=== PATIENT | female | born 1985 | race Caucasian/White ===

== ENCOUNTER → 2017-03-30 | Outpatient (CLI) | payer OTHER ==
[~2017-03-30] MED LIST: ANTIVERT25 MG PO; ATOXIMETIN-B1 CAP PO; BACTRIM DS 8001 TA1 PO; CEPHALEXIN500 M1 PO; CIPRO250 MG PO; CLARITIN10 MG PO; CLINDAMYCIN HC300 MG PO; CLOTRIM ANTIFUNGAL1% TP; COMPAZINE10 MG PO; FLONASE 0.05% 121 EA NAS; FOLIC ACID1 MG; LOMOTIL 0.025 M1 TA1 PO; METHOTREXATE2.5 MG; METHOTREXATE2.5 MG PO; MOTRIN600 MG PO; MOTRIN800 MG PO; PLAQUENIL200 MG PO; PREDNISONE10 MG PO; PRENATAL1 TA3 PO; ROBITUSSIN AC 110 ML PO; SPIRIVA18 MCG IH; ZANTAC150 MG PO; ZITHROMAX Z PA250 MG PO; ZOFRAN ODT4 MG SL; ZYRTEC10 MG PO; [UNRECOGNIZED DRUG - OTHER] PO
[2017-03-30 10:52] LABS: BASO % 0.4 % (0.0-1.0); EOS # 0.2 10*3/uL (0.0-0.4); HEMOGLOBIN 13.8 g/dl (12.0-16.0); LYMPH # 1.3 10*3/uL (1.3-4.4); LYMPH % 16.1 % (27.0-41.0); MEAN CELL VOLUME 94.9 fl (81.0-99.0); MEAN CORPUSCULAR HGB 31.9 pg (27.0-31.0); MEAN CORPUSCULAR HGB CONC 33.7 g/dl (33.0-37.0); MEAN PLATELET VOLUME 9.5 fl (9.6-12.3); MONO # 0.4 10*3/uL (0.1-1.0); MONO % 5.5 % (3.0-9.0); NEUT # 5.9 10*3/uL (2.3-7.9); NEUT % 75.7 % (47.0-73.0); PLATELET COUNT AUTOMATED 199 10*3/uL (130-400); RED BLOOD COUNT 4.32 10*6/uL (4.10-5.10); RED CELL DISTRI WIDTH 12.2 % (0-14.5); WHITE BLOOD COUNT 7.8 10*3/uL (4.8-10.8)
[2017-03-30 11:13] LABS: ALBUMIN 4.1 gm/dl (3.1-4.5); ALKALINE PHOSPHATASE 70 U/L (45-117); BILIRUBIN, TOTAL 0.3 mg/dl (0.2-1.0); BUN 8 mg/dl (7-24); C-REACTIVE PROTEIN 2.85 MG/DL (0-0.3); CARBON DIOXIDE 26 mmol/L (21-32); CHLORIDE 108 mmol/L (98-107); EST GLOM FILT AFRICAN AMERICAN > 60 ml/min; GLUCOSE 91 mg/dL (65-99); POTASSIUM 3.5 mmol/L (3.5-5.1); SGOT/AST 16 IU/L (3-35); SGPT/ALT 19 U/L (12-78); SODIUM 142 mmol/L (136-145); TOTAL PROTEIN 7.6 gm/dL (6.4-8.2)
[2017-03-31 08:12] LABS: COMPLEMENT C4 001834 21 mg/dL (14-44)
== END | disposition home or self-care (01) ==
LOC: LAB 10:25
PROVIDERS: Internal Medicine Rheumatology
DX: M32.9 Systemic lupus erythematosus, unspecified (principal)

== ENCOUNTER 2017-08-27 08:32 | Emergency (ER) | payer OTHER ==
[~2017-08-27] VITALS: Ht 167.6 cm; Wt 70.3 kg
[2017-08-27 08:58] LABS: BASO % 0.4 % (0.0-1.0); EOS # 0.1 10*3/uL (0.0-0.4); EOS % 1.6 % (1.0-4.0); HEMATOCRIT 40.5 % (37.0-47.0); LYMPH # 1.1 10*3/uL (1.3-4.4); LYMPH % 15.5 % (27.0-41.0); MEAN CELL VOLUME 92.9 fl (81.0-99.0); MEAN CORPUSCULAR HGB 32.1 pg (27.0-31.0); MEAN CORPUSCULAR HGB CONC 34.6 g/dl (33.0-37.0); MEAN PLATELET VOLUME 8.9 fl (9.6-12.3); MONO # 0.6 10*3/uL (0.1-1.0); MONO % 7.8 % (3.0-9.0); NEUT # 5.3 10*3/uL (2.3-7.9); NEUT % 74.4 % (47.0-73.0); PLATELET COUNT AUTOMATED 177 10*3/uL (130-400); RED BLOOD COUNT 4.36 10*6/uL (4.10-5.10); RED CELL DISTRI WIDTH 13.1 % (0-14.5); WHITE BLOOD COUNT 7.1 10*3/uL (4.8-10.8)
[2017-08-27 09:07] LABS: BILIRUBIN NEGATIVE (NEGATIVE); BLOOD 1+ (NEGATIVE); CLARITY CLOUDY (CLEAR); COLOR YELLOW (YELLOW); GLUCOSE NEGATIVE (NEGATIVE); KETONE NEGATIVE (NEGATIVE); LEUKO ESTERASE 3+ (NEGATIVE); NITRITE NEGATIVE (NEGATIVE); SPECIFIC GRAVITY 1.025 (1.005-1.030)
[2017-08-27 09:08] LABS: ACT PARTIAL THROMBO TIME 25.7 SECONDS (20.8-31.5)
[2017-08-27 09:15] LABS: ALBUMIN 3.7 gm/dl (3.1-4.5); ALKALINE PHOSPHATASE 75 U/L (45-117); BUN 6 mg/dl (7-24); CHLORIDE 105 mmol/L (98-107); CREATININE 0.78 mg/dL (0.55-1.02); LIPASE 93 U/L (73-393); POTASSIUM 3.7 mmol/L (3.5-5.1); SGOT/AST 15 IU/L (3-35); SGPT/ALT 22 U/L (12-78); SODIUM 138 mmol/L (136-145); TOTAL PROTEIN 7.4 gm/dL (6.4-8.2)
[2017-08-27 09:18] LABS: BETA-HCG, QUANT < 1.0 mIU/mL (1-3); TROPONIN I < 0.015 ng/ml (<0.045)
[2017-08-27 09:30] LABS: BACTERIA 3+; WBC TNTC wbc/hpf (0-5)
[2017-08-27] MEDS ORDERED: Motrin,Rufen800 MG PO (10:57)
[2017-08-27] MEDS ORDERED: LEVAQUIN750 M1 PO (10:57)
== END 2017-08-27 11:36 | disposition home or self-care (01) ==
LOC: ED 08:32
PROVIDERS: Emergency Medicine
DX: J18.9 Pneumonia, unspecified organism (principal); N39.0 Urinary tract infection, site not specified; F17.200 Nicotine dependence, unspecified, uncomplicated; F12.10 Cannabis abuse, uncomplicated; Z88.0 Allergy status to penicillin

== ENCOUNTER 2017-09-12 08:34 | Emergency (ER) | payer OTHER ==
[~2017-09-12] VITALS: Ht 167.6 cm; Wt 70.3 kg
[~2017-09-12 08:34] MED LIST changes: +LEVAQUIN750 M1 PO; +Motrin,Rufen800 MG PO
[2017-09-12 09:46] LABS: BASO # 0.1 10*3/uL (0.0-0.1); BASO % 0.5 % (0.0-1.0); EOS # 0.3 10*3/uL (0.0-0.4); EOS % 2.8 % (1.0-4.0); HEMATOCRIT 39.6 % (37.0-47.0); HEMOGLOBIN 13.4 g/dl (12.0-16.0); LYMPH # 1.9 10*3/uL (1.3-4.4); LYMPH % 17.1 % (27.0-41.0); MEAN CELL VOLUME 92.3 fl (81.0-99.0); MEAN CORPUSCULAR HGB 31.2 pg (27.0-31.0); MEAN CORPUSCULAR HGB CONC 33.8 g/dl (33.0-37.0); MEAN PLATELET VOLUME 9.2 fl (9.6-12.3); MONO # 0.6 10*3/uL (0.1-1.0); MONO % 5.6 % (3.0-9.0); NEUT % 73.6 % (47.0-73.0); PLATELET COUNT AUTOMATED 212 10*3/uL (130-400); RED BLOOD COUNT 4.29 10*6/uL (4.10-5.10); RED CELL DISTRI WIDTH 12.9 % (0-14.5); WHITE BLOOD COUNT 10.8 10*3/uL (4.8-10.8)
[2017-09-12 10:02] LABS: ALBUMIN 3.7 gm/dl (3.1-4.5); ALKALINE PHOSPHATASE 82 U/L (45-117); BUN 6 mg/dl (7-24); CHLORIDE 105 mmol/L (98-107); CREATININE 0.71 mg/dL (0.55-1.02); POTASSIUM 3.9 mmol/L (3.5-5.1); SGOT/AST 12 IU/L (3-35); SGPT/ALT 17 U/L (12-78); SODIUM 137 mmol/L (136-145); TOTAL PROTEIN 7.5 gm/dL (6.4-8.2)
[2017-09-12 10:03] LABS: TROPONIN I < 0.015 ng/ml (<0.045)
[2017-09-12] MEDS ORDERED: CHERATUSSIN AC118 M1 PO (12:54)
[2017-09-12] MEDS ORDERED: ALBUTEROL2.5 MG/0.5 INH (12:54)
== END 2017-09-12 14:52 | disposition home or self-care (01) ==
LOC: ED 08:34
PROVIDERS: Nurse Practitioner
DX: J18.9 Pneumonia, unspecified organism (principal); F17.200 Nicotine dependence, unspecified, uncomplicated; Z88.0 Allergy status to penicillin

== ENCOUNTER 2017-11-15 10:41 | Emergency (ER) | payer OTHER ==
[~2017-11-15] VITALS: Ht 167.6 cm; Wt 72.6 kg
[~2017-11-15 10:41] MED LIST changes: +ALBUTEROL2.5 MG/0.5 INH; +CHERATUSSIN AC118 M1 PO
[2017-11-15] MEDS ORDERED: PLAQUENIL200 MG PO (10:51)
[2017-11-15 11:13] LABS: BILIRUBIN NEGATIVE (NEGATIVE); BLOOD NEGATIVE (NEGATIVE); CLARITY SL CLOUDY (CLEAR); COLOR YELLOW (YELLOW); GLUCOSE NEGATIVE (NEGATIVE); KETONE TRACE (NEGATIVE); LEUKO ESTERASE TRACE (NEGATIVE); NITRITE NEGATIVE (NEGATIVE); UROBILINOGEN 0.2 E.U./dl (0.2-1.0)
[2017-11-15 11:22] LABS: BACTERIA 3+; EPITHELIAL CELLS 16-20
[2017-11-15 11:27] LABS: BASO % 0.5 % (0.0-1.0); EOS % 0.5 % (1.0-4.0); HEMATOCRIT 41.3 % (37.0-47.0); HEMOGLOBIN 13.9 g/dl (12.0-16.0); LYMPH # 2.1 10*3/uL (1.3-4.4); LYMPH % 31.8 % (27.0-41.0); MEAN CELL VOLUME 93.7 fl (81.0-99.0); MEAN CORPUSCULAR HGB 31.5 pg (27.0-31.0); MEAN CORPUSCULAR HGB CONC 33.7 g/dl (33.0-37.0); MEAN PLATELET VOLUME 9.2 fl (9.6-12.3); MONO # 0.4 10*3/uL (0.1-1.0); MONO % 6.8 % (3.0-9.0); NEUT # 3.9 10*3/uL (2.3-7.9); NEUT % 60.2 % (47.0-73.0); PLATELET COUNT AUTOMATED 208 10*3/uL (130-400); RED BLOOD COUNT 4.41 10*6/uL (4.10-5.10); WHITE BLOOD COUNT 6.4 10*3/uL (4.8-10.8)
[2017-11-15 11:42] LABS: ALKALINE PHOSPHATASE 62 U/L (45-117); BUN 10 mg/dl (7-24); CHLORIDE 107 mmol/L (98-107); CREATININE 0.71 mg/dL (0.55-1.02); SGOT/AST 15 IU/L (3-35); SGPT/ALT 20 U/L (12-78); SODIUM 140 mmol/L (136-145); TOTAL PROTEIN 7.5 gm/dL (6.4-8.2)
[2017-11-15 12:14] LABS: B-hCG (QUALITATIVE) POSITIVE (NEGATIVE)
== END 2017-11-15 14:56 | disposition home or self-care (01) ==
LOC: ED 10:41
PROVIDERS: Emergency Medicine; Nurse Practitioner
DX: O26.891 Other specified pregnancy related conditions, first trimester (principal); O99.331 Smoking (tobacco) complicating pregnancy, first trimester; F17.200 Nicotine dependence, unspecified, uncomplicated; Z88.0 Allergy status to penicillin; Z90.49 Acquired absence of other specified parts of digestive tract; Z3A.01 Less than 8 weeks gestation of pregnancy

== ENCOUNTER → 2017-12-31 | Outpatient (CLI) | payer OTHER ==
[2017-12-31 11:31] LABS: BILIRUBIN NEGATIVE (NEGATIVE); BLOOD NEGATIVE (NEGATIVE); CLARITY CLOUDY (CLEAR); COLOR YELLOW (YELLOW); GLUCOSE NEGATIVE (NEGATIVE); KETONE NEGATIVE (NEGATIVE); LEUKO ESTERASE TRACE (NEGATIVE); NITRITE NEGATIVE (NEGATIVE); PH 6.5 (5.0-9.0); UROBILINOGEN 0.2 E.U./dl (0.2-1.0)
[2017-12-31 11:47] LABS: BACTERIA TRACE; EPITHELIAL CELLS 16-20
[2017-12-31 12:01] LABS: ALBUMIN 3.5 gm/dl (3.1-4.5); ALKALINE PHOSPHATASE 62 U/L (45-117); BUN 8 mg/dl (7-24); CHLORIDE 108 mmol/L (98-107); CREATININE 0.64 mg/dL (0.55-1.02); FREE T4 0.89 ng/dl (0.76-1.46); POTASSIUM 3.8 mmol/L (3.5-5.1); SGOT/AST 10 IU/L (3-35); SGPT/ALT 16 U/L (12-78); SODIUM 138 mmol/L (136-145)
[2018-01-01 08:10] LABS: COMPLEMENT C4 001834 16 mg/dL (14-44)
[2018-01-01 15:06] LABS: ANTI-DSDNA ANTIBODIES 096339 58 IU/mL (0-9); SJOGREN ANTI-SS-A <0.2 AI (0.0-0.9); SJOREN AB, ANTI-SS-B <0.2 AI (0.0-0.9)
== END | disposition home or self-care (01) ==
LOC: LAB 10:58
PROVIDERS: Obstetrics & Gynecology Maternal & Fetal Medicine
DX: O99.89 Other specified diseases and conditions complicating pregnancy, childbirth and the puerperium (principal); M32.9 Systemic lupus erythematosus, unspecified

== ENCOUNTER 2018-05-11 02:23 | Emergency (ER) | payer OTHER ==
[~2018-05-11] VITALS: Ht 167.6 cm; Wt 72.6 kg
[2018-05-11] MEDS ORDERED: PRENATABS FA T1 EACH PO (02:44)
[2018-05-11 02:47] LABS: BILIRUBIN NEGATIVE (NEGATIVE); BLOOD 1+ (NEGATIVE); CLARITY CLEAR (CLEAR); COLOR YELLOW (YELLOW); GLUCOSE NEGATIVE (NEGATIVE); KETONE NEGATIVE (NEGATIVE); LEUKO ESTERASE 3+ (NEGATIVE); NITRITE NEGATIVE (NEGATIVE); PH 6.5 (5.0-9.0); SPECIFIC GRAVITY <= 1.005 (1.005-1.030); UROBILINOGEN 0.2 E.U./dl (0.2-1.0)
== END 2018-05-11 04:24 | disposition short-term general hospital (02) ==
LOC: ED 02:23
PROVIDERS: Emergency Medicine
DX: O60.03 Preterm labor without delivery, third trimester (principal); O99.323 Drug use complicating pregnancy, third trimester; M32.9 Systemic lupus erythematosus, unspecified; F12.10 Cannabis abuse, uncomplicated; Z79.899 Other long term (current) drug therapy; Z3A.30 30 weeks gestation of pregnancy; Z88.0 Allergy status to penicillin

== ENCOUNTER 2019-07-27 18:41 | Emergency (ER) | payer OTHER ==
[~2019-07-27] VITALS: Ht 167.6 cm; Wt 73.9 kg
[~2019-07-27 18:41] MED LIST changes: +PRENATABS FA T1 EACH PO
[2019-07-27 19:06] LABS: BILIRUBIN NEGATIVE (NEGATIVE); BLOOD 2+ (NEGATIVE); CLARITY SL CLOUDY (CLEAR); COLOR YELLOW (YELLOW); GLUCOSE NEGATIVE (NEGATIVE); KETONE NEGATIVE (NEGATIVE); LEUKO ESTERASE 3+ (NEGATIVE); NITRITE NEGATIVE (NEGATIVE); PH 6.5 (5.0-9.0); UROBILINOGEN 0.2 E.U./dl (0.2-1.0)
[2019-07-27 19:21] LABS: BACTERIA TRACE; WBC TNTC wbc/hpf (0-5)
[2019-07-27] MEDS ORDERED: AMINOPHYLLIN200 MG PO (19:33)
[2019-07-27] MEDS ORDERED: DELTASONE20 M1 PO (19:33)
== END 2019-07-27 19:40 | disposition home or self-care (01) ==
LOC: ED 18:41
PROVIDERS: Physician Assistant
DX: J40 Bronchitis, not specified as acute or chronic (principal); N39.0 Urinary tract infection, site not specified; Z88.0 Allergy status to penicillin; Z90.49 Acquired absence of other specified parts of digestive tract

== ENCOUNTER 2020-09-15 21:06 | Emergency (ER) | payer OTHER ==
[~2020-09-15] VITALS: Ht 167.6 cm; Wt 63.5 kg
[~2020-09-15 21:06] MED LIST changes: +AMINOPHYLLIN200 MG PO; +DELTASONE20 M1 PO
[2020-09-15 22:21] LABS: URINE AMPHETAMINES > 1000 (1000ng/ml); URINE BARBITURATES < 200 (200ng/ml); URINE BENZODIAZEPINES < 200 (200ng/ml); URINE CANNABINOIDS (THC) > 50 (50ng/ml); URINE COCAINE < 300 (300ng/ml); URINE METHADONE < 300 (300ng/ml); URINE OPIATES < 300 (300ng/ml); URINE PHENCYCLIDINE < 25 (25ng/ml)
== END 2020-09-15 22:37 | disposition home or self-care (01) ==
LOC: ED 21:06
PROVIDERS: Internal Medicine
DX: F19.90 Other psychoactive substance use, unspecified, uncomplicated (principal); F32.9 Major depressive disorder, single episode, unspecified; F17.200 Nicotine dependence, unspecified, uncomplicated; Z88.0 Allergy status to penicillin; Z79.2 Long term (current) use of antibiotics; Z79.899 Other long term (current) drug therapy; Z90.49 Acquired absence of other specified parts of digestive tract

== ENCOUNTER 2021-05-12 14:49 | Emergency (ER) | payer OTHER ==
[~2021-05-12] VITALS: Ht 167.6 cm; Wt 74.8 kg
[2021-05-12 15:56] LABS: BASO % 0.5 % (0.0-1.0); EOS % 0.7 % (1.0-4.0); HEMATOCRIT 43.1 % (37.0-47.0); LYMPH # 1.3 10*3/uL (1.3-4.4); MEAN CELL VOLUME 95.8 fl (81.0-99.0); MEAN CORPUSCULAR HGB 30.9 pg (27.0-31.0); MEAN CORPUSCULAR HGB CONC 32.3 g/dl (33.0-37.0); MEAN PLATELET VOLUME 9.3 fl (9.6-12.3); MONO # 0.3 10*3/uL (0.1-1.0); MONO % 5.6 % (3.0-9.0); NEUT # 3.9 10*3/uL (2.3-7.9); PLATELET COUNT AUTOMATED 226 10*3/uL (130-400); RED CELL DISTRI WIDTH 11.9 % (0-14.5); WHITE BLOOD COUNT 5.5 10*3/uL (4.8-10.8)
[2021-05-12 16:12] LABS: ACETAMINOPHEN (TYLENOL) < 5.0 ug/ml (10-30); ALBUMIN 3.6 gm/dl (3.1-4.5); ALKALINE PHOSPHATASE 71 U/L (45-117); BUN 6 mg/dl (7-24); CHLORIDE 109 mmol/L (98-107); CPK 74 U/L (26-192); CREATININE 0.82 mg/dL (0.55-1.02); ETHYL ALCOHOL < 3.0 mg/dl (<3); LIPASE 82 U/L (73-393); POTASSIUM 3.7 mmol/L (3.5-5.1); SGOT/AST 15 IU/L (3-35); SGPT/ALT 16 U/L (12-78); SODIUM 138 mmol/L (136-145); TOTAL PROTEIN 7.3 gm/dL (6.4-8.2)
[2021-05-12 16:13] LABS: BETA-HCG, QUANT < 1.0 mIU/mL (1-3)
[2021-05-12 18:29] LABS: BILIRUBIN Negative (Negative); BLOOD Negative (Negative); CLARITY Clear (Clear); COLOR Yellow (Yellow); GLUCOSE Negative (Negative); KETONE Negative (Negative); LEUKO ESTERASE Negative (Negative); NITRITE Negative (Negative); SPECIFIC GRAVITY <= 1.005 (1.001-1.030); UROBILINOGEN 0.2 E.U./dl (0.0-1.0)
[2021-05-12 18:36] LABS: URINE AMPHETAMINES < 1000 (1000ng/ml); URINE BARBITURATES < 200 (200ng/ml); URINE BENZODIAZEPINES < 200 (200ng/ml); URINE CANNABINOIDS (THC) > 50 (50ng/ml); URINE COCAINE < 300 (300ng/ml); URINE METHADONE < 300 (300ng/ml); URINE OPIATES < 300 (300ng/ml)
[2021-05-12 18:38] LABS: URINE PHENCYCLIDINE < 25 (25ng/ml)
[2021-05-12 18:42] LABS: BACTERIA TRACE; EPITHELIAL CELLS 0-2; RBC 0-2 rbc/hpf (0-2); WBC 0-2 wbc/hpf (0-5)
== END 2021-05-12 18:14 | disposition home or self-care (01) ==
LOC: ED 14:49
PROVIDERS: Emergency Medicine
DX: F43.20 Adjustment disorder, unspecified (principal); F17.200 Nicotine dependence, unspecified, uncomplicated; Z79.899 Other long term (current) drug therapy; Z88.0 Allergy status to penicillin

== ENCOUNTER 2021-07-28 15:44 | Emergency (ER) | payer OTHER ==
[~2021-07-28] VITALS: Ht 167.6 cm; Wt 74.8 kg
[2021-07-28 18:05] LABS: BILIRUBIN Negative (Negative); BLOOD 1+ (Negative); CLARITY Clear (Clear); COLOR Yellow (Yellow); GLUCOSE Negative (Negative); KETONE Negative (Negative); LEUKO ESTERASE 1+ (Negative); NITRITE Negative (Negative); SPECIFIC GRAVITY <= 1.005 (1.001-1.030); UROBILINOGEN 0.2 E.U./dl (0.0-1.0)
[2021-07-28 18:17] LABS: EPITHELIAL CELLS 21-30
[2021-07-28 18:18] LABS: BACTERIA TRACE
== END 2021-07-28 18:41 | disposition home or self-care (01) ==
LOC: ED 15:44
PROVIDERS: Emergency Medicine
DX: J02.9 Acute pharyngitis, unspecified (principal); Z20.822 Contact with and (suspected) exposure to COVID-19; Z34.90 Encounter for supervision of normal pregnancy, unspecified, unspecified trimester; R05 Cough; R09.81 Nasal congestion; Z88.0 Allergy status to penicillin

== ENCOUNTER → 2021-09-08 | Outpatient (CLI) | payer OTHER | END | disposition home or self-care (01) | LOC: US 13:30 | PROVIDERS: ATTEND Obstetrics & Gynecology | DX: Z34.82 Encounter for supervision of other normal pregnancy, second trimester (principal); Z3A.17 17 weeks gestation of pregnancy ==

== ENCOUNTER → 2021-11-21 | Outpatient (CLI) | payer OTHER | END | disposition home or self-care (01) | LOC: COVID19 15:05 | PROVIDERS: ATTEND Student in an Organized Health Care Education/Training Program | DX: U07.1 COVID-19 (principal) ==

== ENCOUNTER 2022-03-01 15:21 | Emergency (ER) | payer OTHER ==
[~2022-03-01] VITALS: Ht 167.6 cm; Wt 75.3 kg
[2022-03-01] MEDS ORDERED: HYDROCODONE-AC1 EAC1 PO (16:02)
[2022-03-01] MEDS ORDERED: CLEOCIN HCL150 MG PO (16:02)
[2022-03-01] MEDS ORDERED: Motrin,Rufen800 MG PO (16:02)
== END 2022-03-01 16:06 | disposition home or self-care (01) ==
LOC: ED 15:21
DX: K08.89 Other specified disorders of teeth and supporting structures (principal); Z88.0 Allergy status to penicillin; Z90.49 Acquired absence of other specified parts of digestive tract

== ENCOUNTER 2022-05-14 14:40 | Emergency (ER) | payer OTHER ==
[~2022-05-14 14:40] MED LIST changes: +CLEOCIN HCL150 MG PO; +HYDROCODONE-AC1 EAC1 PO
[2022-05-14 15:11] LABS: BILIRUBIN Negative (Negative); BLOOD 2+ (Negative); CLARITY Turbid (Clear); COLOR Yellow (Yellow); GLUCOSE Negative (Negative); KETONE Trace (Negative); LEUKO ESTERASE 2+ (Negative); NITRITE Positive (Negative)
[2022-05-14 15:27] LABS: BACTERIA 2+; EPITHELIAL CELLS 16-20; WBC 41-50 wbc/hpf (0-5)
[2022-05-14] MEDS ORDERED: MACRODANTIN100 M1 PO (15:40)
== END 2022-05-14 15:57 | disposition home or self-care (01) ==
LOC: ED 14:40
PROVIDERS: Internal Medicine
DX: O23.91 Unspecified genitourinary tract infection in pregnancy, first trimester (principal); Z3A.01 Less than 8 weeks gestation of pregnancy; Z88.0 Allergy status to penicillin; Z90.49 Acquired absence of other specified parts of digestive tract; F17.200 Nicotine dependence, unspecified, uncomplicated

== ENCOUNTER → 2022-07-24 | Outpatient (CLI) | payer OTHER ==
[~2022-07-24] MED LIST changes: +MACRODANTIN100 M1 PO
== END | disposition home or self-care (01) ==
LOC: LAB 07-21 09:39
PROVIDERS: ATTEND Nurse Practitioner Family
DX: Z36.0 Encounter for antenatal screening for chromosomal anomalies (principal); Z34.92 Encounter for supervision of normal pregnancy, unspecified, second trimester; Z3A.00 Weeks of gestation of pregnancy not specified

== ENCOUNTER 2022-09-27 02:46 | Emergency (ER) | payer OTHER ==
[~2022-09-27] VITALS: Ht 167.6 cm; Wt 87.1 kg
[2022-09-27 04:42] LABS: BASO % 0.3 % (0.0-1.0); EOS # 0.1 10*3/uL (0.0-0.4); HEMATOCRIT 32.7 % (37.0-47.0); LYMPH # 0.9 10*3/uL (1.3-4.4); LYMPH % 8.7 % (27.0-41.0); MEAN CELL VOLUME 95.3 fl (81.0-99.0); MEAN CORPUSCULAR HGB 33.2 pg (27.0-31.0); MEAN CORPUSCULAR HGB CONC 34.9 g/dl (33.0-37.0); MONO # 0.5 10*3/uL (0.1-1.0); MONO % 4.7 % (3.0-9.0); NEUT # 8.4 10*3/uL (2.3-7.9); NEUT % 84.9 % (47.0-73.0); PLATELET COUNT AUTOMATED 181 10*3/uL (130-400); RED BLOOD COUNT 3.43 10*6/uL (4.10-5.10); RED CELL DISTRI WIDTH 12.9 % (0-14.5)
[2022-09-27 04:58] LABS: ALKALINE PHOSPHATASE 106 U/L (45-117); BUN 5 mg/dl (7-24); CHLORIDE 108 mmol/L (98-107); CREATININE 0.54 mg/dL (0.55-1.02); POTASSIUM 3.7 mmol/L (3.5-5.1); SGPT/ALT 23 U/L (12-78); SODIUM 137 mmol/L (136-145); TOTAL PROTEIN 6.2 gm/dL (6.4-8.2)
[2022-09-27 05:32] LABS: BILIRUBIN Negative (Negative); BLOOD Negative (Negative); CLARITY Clear (Clear); COLOR Yellow (Yellow); GLUCOSE Negative (Negative); KETONE Negative (Negative); LEUKO ESTERASE Negative (Negative); NITRITE Negative (Negative); UROBILINOGEN 0.2 E.U./dl (0.0-1.0)
[2022-09-27 06:10] LABS: WBC 0-2 wbc/hpf (0-5)
== END 2022-09-27 11:43 | disposition left against medical advice (07) ==
LOC: ED 02:46
PROVIDERS: Emergency Medicine
DX: O99.512 Diseases of the respiratory system complicating pregnancy, second trimester (principal); Z20.822 Contact with and (suspected) exposure to COVID-19; J10.1 Influenza due to other identified influenza virus with other respiratory manifestations; Z3A.26 26 weeks gestation of pregnancy

== ENCOUNTER 2022-11-17 10:32 | Emergency (ER) | payer OTHER ==
[~2022-11-17] VITALS: Ht 167.6 cm; Wt 87.5 kg
[2022-11-17] MEDS ORDERED: CEPHALEXIN500 M1 PO (12:15)
== END 2022-11-17 12:28 | disposition home or self-care (01) ==
LOC: ED 10:32
DX: K08.89 Other specified disorders of teeth and supporting structures (principal); Z88.0 Allergy status to penicillin; Z90.49 Acquired absence of other specified parts of digestive tract

== ENCOUNTER 2022-11-26 13:37 | Emergency (ER) | payer OTHER ==
[~2022-11-26] VITALS: Ht 167.6 cm; Wt 85.7 kg
== END 2022-11-26 16:25 | disposition home or self-care (01) ==
LOC: ED 13:37
DX: O99.513 Diseases of the respiratory system complicating pregnancy, third trimester (principal); J06.9 Acute upper respiratory infection, unspecified; Z3A.35 35 weeks gestation of pregnancy; Z88.0 Allergy status to penicillin; Z98.890 Other specified postprocedural states; F10.90 Alcohol use, unspecified, uncomplicated; Z20.822 Contact with and (suspected) exposure to COVID-19

== ENCOUNTER 2023-03-08 21:42 | Emergency (ER) | payer OTHER ==
[~2023-03-08] VITALS: Ht 167.6 cm; Wt 81.6 kg
[2023-03-08 22:01] LABS: BASO % 0.4 % (0.0-1.0); EOS # 0.3 10*3/uL (0.0-0.4); EOS % 3.4 % (1.0-4.0); HEMATOCRIT 41.9 % (37.0-47.0); LYMPH # 2.9 10*3/uL (1.3-4.4); LYMPH % 35.1 % (27.0-41.0); MEAN CELL VOLUME 93.9 fl (81.0-99.0); MEAN CORPUSCULAR HGB 31.2 pg (27.0-31.0); MEAN CORPUSCULAR HGB CONC 33.2 g/dl (33.0-37.0); MEAN PLATELET VOLUME 8.8 fl (9.6-12.3); NEUT % 48.9 % (47.0-73.0); PLATELET COUNT AUTOMATED 270 10*3/uL (130-400); RED BLOOD COUNT 4.46 10*6/uL (4.10-5.10); WHITE BLOOD COUNT 8.3 10*3/uL (4.8-10.8)
[2023-03-08 22:22] LABS: ALKALINE PHOSPHATASE 83 U/L (46-116); BUN 10 mg/dl (9-23); CHLORIDE 107 mmol/L (98-107); SGPT/ALT 44 U/L (10-49); TOTAL PROTEIN 6.9 gm/dL (6.0-8.0)
[2023-03-09] MEDS ORDERED: PREDNISONE20 M1 PO (00:16)
== END 2023-03-09 00:23 | disposition home or self-care (01) ==
LOC: ED 21:42
PROVIDERS: Internal Medicine
DX: R07.89 Other chest pain (principal); Z88.0 Allergy status to penicillin; Z90.49 Acquired absence of other specified parts of digestive tract

== ENCOUNTER → 2023-05-28 | Day surgery (SDC) | payer OTHER ==
[2023-05-24 12:45] VITALS: BP 107/69
[2023-05-28] VITALS (7 sets, daily range): BP systolic 102–130; BP diastolic 46–75
[~2023-05-28] VITALS: Ht 167.6 cm; Wt 79.4 kg
[~2023-05-28] MED LIST changes: +CETIRIZINE10 MG PO; +PREDNISONE20 M1 PO; +PRENATAL MULTI1 EAC3 PO
== END ==
LOC: SDC 05-24 12:30
PROVIDERS: ATTEND Obstetrics & Gynecology
DX: Z30.2 Encounter for sterilization (principal); M32.9 Systemic lupus erythematosus, unspecified; F17.210 Nicotine dependence, cigarettes, uncomplicated; Z79.899 Other long term (current) drug therapy; Z90.49 Acquired absence of other specified parts of digestive tract

== ENCOUNTER 2023-06-15 00:57 | Emergency (ER) | payer OTHER ==
[2023-06-15] MEDS ORDERED: CLINDAMYCIN HC300 MG PO (01:59)
== END 2023-06-15 02:01 | disposition home or self-care (01) ==
LOC: ED 00:57
DX: T81.41XA Infection following a procedure, superficial incisional surgical site, initial encounter (principal); P38.9 Omphalitis without hemorrhage; F32.A Depression, unspecified; Z88.0 Allergy status to penicillin; Z98.890 Other specified postprocedural states; Z98.51 Tubal ligation status; Y83.8 Other surgical procedures as the cause of abnormal reaction of the patient, or of later complication, without mention of misadventure at the time of the procedure; Y92.89 Other specified places as the place of occurrence of the external cause

== ENCOUNTER 2023-06-30 06:09 | Emergency (ER) | payer OTHER ==
[~2023-06-30] VITALS: Ht 165.1 cm; Wt 81.6 kg
[2023-06-30] MEDS ORDERED: PREDNISONE20 M1 PO (06:26)
[2023-06-30] MEDS ORDERED: OMNICEF300 MG PO (06:26)
== END 2023-06-30 06:38 | disposition home or self-care (01) ==
LOC: ED 06:09
DX: K08.89 Other specified disorders of teeth and supporting structures (principal); R11.0 Nausea; R51.9 Headache, unspecified; Z88.0 Allergy status to penicillin; Z79.2 Long term (current) use of antibiotics; Z79.899 Other long term (current) drug therapy

== ENCOUNTER 2023-07-02 00:03 | Emergency (ER) | payer OTHER ==
[~2023-07-02] VITALS: Ht 167.6 cm; Wt 83.9 kg
[~2023-07-02 00:03] MED LIST changes: +OMNICEF300 MG PO
[2023-07-02 00:43] LABS: BASO # 0.1 10*3/uL (0.0-0.1); BASO % 0.7 % (0.0-1.0); EOS # 0.3 10*3/uL (0.0-0.4); LYMPH # 2.6 10*3/uL (1.3-4.4); LYMPH % 36.9 % (27.0-41.0); MEAN CELL VOLUME 93.2 fl (81.0-99.0); MEAN CORPUSCULAR HGB 30.5 pg (27.0-31.0); MEAN CORPUSCULAR HGB CONC 32.7 g/dl (33.0-37.0); MONO # 0.5 10*3/uL (0.1-1.0); MONO % 6.8 % (3.0-9.0); NEUT # 3.6 10*3/uL (2.3-7.9); NEUT % 51.2 % (47.0-73.0); PLATELET COUNT AUTOMATED 267 10*3/uL (130-400); RED CELL DISTRI WIDTH 12.1 % (0-14.5); WHITE BLOOD COUNT 7.1 10*3/uL (4.8-10.8)
[2023-07-02 00:55] LABS: ACT PARTIAL THROMBO TIME 28.5 SECONDS (20.0-32.1)
[2023-07-02 01:06] LABS: ALKALINE PHOSPHATASE 85 U/L (46-116); BUN 8 mg/dl (9-23); CHLORIDE 109 mmol/L (98-107); LIPASE 33 U/L (12-53); POTASSIUM 3.6 mmol/L (3.4-5.1); SGPT/ALT 19 U/L (10-49); TOTAL PROTEIN 6.7 gm/dL (6.0-8.0)
== END 2023-07-02 03:16 | disposition home or self-care (01) ==
LOC: ED 00:03
PROVIDERS: Internal Medicine
DX: K08.89 Other specified disorders of teeth and supporting structures (principal); R07.89 Other chest pain; F32.A Depression, unspecified; Z88.0 Allergy status to penicillin; Z98.890 Other specified postprocedural states; Z98.51 Tubal ligation status

== ENCOUNTER 2023-11-01 20:33 | Emergency (ER) | payer OTHER ==
[~2023-11-01] VITALS: Ht 167.6 cm; Wt 86.2 kg
[~2023-11-01 20:33] MED LIST changes: +DAILY VITE1 EACH PO; +MELOXICAM15 MG PO
[2023-11-01] MEDS ORDERED: ZYRTEC10 M2 PO (20:50)
[2023-11-01 21:32] LABS: BASO # 0.1 10*3/uL (0.0-0.1); BASO % 0.9 % (0.0-1.0); EOS # 0.4 10*3/uL (0.0-0.4); EOS % 5.4 % (1.0-4.0); HEMATOCRIT 43.2 % (37.0-47.0); LYMPH # 1.9 10*3/uL (1.3-4.4); LYMPH % 27.6 % (27.0-41.0); MEAN CELL VOLUME 93.3 fl (81.0-99.0); MEAN CORPUSCULAR HGB 30.2 pg (27.0-31.0); MEAN CORPUSCULAR HGB CONC 32.4 g/dl (33.0-37.0); MEAN PLATELET VOLUME 8.9 fl (9.6-12.3); MONO # 0.5 10*3/uL (0.1-1.0); MONO % 6.5 % (3.0-9.0); NEUT # 4.2 10*3/uL (2.3-7.9); NEUT % 59.5 % (47.0-73.0); PLATELET COUNT AUTOMATED 297 10*3/uL (130-400); RED BLOOD COUNT 4.63 10*6/uL (4.10-5.10); RED CELL DISTRI WIDTH 12.3 % (0-14.5)
[2023-11-01 21:51] LABS: BILIRUBIN Negative (Negative); BLOOD 3+ (Negative); CLARITY Clear (Clear); COLOR Yellow (Yellow); GLUCOSE Negative (Negative); KETONE Negative (Negative); LEUKO ESTERASE Trace (Negative); NITRITE Negative (Negative); PH 6.5 (4.5-8.0); UROBILINOGEN 0.2 E.U./dl (0.0-1.0)
[2023-11-01 21:54] LABS: ALKALINE PHOSPHATASE 82 U/L (46-116); BUN 9 mg/dl (9-23); CHLORIDE 107 mmol/L (98-107); LIPASE 36 U/L (12-53); POTASSIUM 4.2 mmol/L (3.4-5.1); SGPT/ALT 25 U/L (5-49)
[2023-11-01 22:01] LABS: BACTERIA 1+; RBC 41-50 rbc/hpf (0-2)
[2023-11-01] MEDS ORDERED: ZITHROMAX250 MG PO (22:31)
[2023-11-01] MEDS ORDERED: PREDNISONE20 M1 PO (22:31)
== END 2023-11-01 22:37 | disposition home or self-care (01) ==
LOC: ED 20:33
PROVIDERS: Internal Medicine
DX: J40 Bronchitis, not specified as acute or chronic (principal); F32.A Depression, unspecified; Z88.0 Allergy status to penicillin; Z98.890 Other specified postprocedural states; Z98.51 Tubal ligation status; Z79.899 Other long term (current) drug therapy; Z20.822 Contact with and (suspected) exposure to COVID-19

== ENCOUNTER 2024-03-09 02:33 | Emergency (ER) | payer OTHER ==
[~2024-03-09] VITALS: Ht 167.6 cm; Wt 86.2 kg
[~2024-03-09 02:33] MED LIST changes: +ZITHROMAX250 MG PO; +ZYRTEC10 M2 PO
[2024-03-09 03:10] LABS: BASO % 0.4 % (0.0-1.0); EOS # 0.3 10*3/uL (0.0-0.4); EOS % 2.8 % (1.0-4.0); HEMATOCRIT 39.8 % (37.0-47.0); LYMPH # 2.7 10*3/uL (1.3-4.4); LYMPH % 30.2 % (27.0-41.0); MEAN CELL VOLUME 93.2 fl (81.0-99.0); MEAN CORPUSCULAR HGB CONC 32.2 g/dl (33.0-37.0); MONO # 0.6 10*3/uL (0.1-1.0); MONO % 6.2 % (3.0-9.0); NEUT # 5.4 10*3/uL (2.3-7.9); NEUT % 60.3 % (47.0-73.0); PLATELET COUNT AUTOMATED 252 10*3/uL (130-400); RED BLOOD COUNT 4.27 10*6/uL (4.10-5.10); RED CELL DISTRI WIDTH 12.2 % (0-14.5); WHITE BLOOD COUNT 8.9 10*3/uL (4.8-10.8)
[2024-03-09 03:32] LABS: ALKALINE PHOSPHATASE 72 U/L (46-116); BUN 12 mg/dl (9-23); CHLORIDE 103 mmol/L (98-107); POTASSIUM 3.6 mmol/L (3.4-5.1); SGPT/ALT 16 U/L (5-49); TOTAL PROTEIN 6.1 gm/dL (6.0-8.0)
== END 2024-03-09 06:33 | disposition home or self-care (01) ==
LOC: ED 02:33
PROVIDERS: Emergency Medicine
DX: R07.89 Other chest pain (principal); F41.9 Anxiety disorder, unspecified; Z88.0 Allergy status to penicillin; F32.A Depression, unspecified; F12.90 Cannabis use, unspecified, uncomplicated; Z90.49 Acquired absence of other specified parts of digestive tract; Z98.51 Tubal ligation status

== ENCOUNTER 2024-06-15 23:23 | Emergency (ER) | payer OTHER ==
[~2024-06-15] VITALS: Ht 167.6 cm; Wt 98.0 kg
[2024-06-15] MEDS ORDERED: Ondansetron Hydrochloride 4 MG TAB SL ONE (23:50)
[2024-06-15] MEDS ORDERED: Acetaminophen/Hydrocodone ES 7.5/325 tablet PO ONE (23:50)
[2024-06-15] MEDS ORDERED: Sulfamethoxazole/Trimethopri 1 TAB TAB PO ONE (23:50)
[2024-06-15] MEDS ORDERED: SEPTDS PO (23:51)
== END 2024-06-16 00:06 | disposition home or self-care (01) ==
LOC: ED 23:23
DX: L60.0 Ingrowing nail (principal); F32.A Depression, unspecified; Z88.0 Allergy status to penicillin; Z90.49 Acquired absence of other specified parts of digestive tract; Z98.51 Tubal ligation status

== ENCOUNTER 2024-06-17 22:31 | Emergency (ER) | payer OTHER ==
[~2024-06-17] VITALS: Ht 167.6 cm; Wt 98.0 kg
[~2024-06-17 22:31] MED LIST changes: +SEPTDS PO
[2024-06-17 23:12] LABS: BASO # 0.1 10*3/uL (0.0-0.1); BASO % 0.6 % (0.0-1.0); EOS # 0.4 10*3/uL (0.0-0.4); EOS % 4.2 % (1.0-4.0); LYMPH # 2.5 10*3/uL (1.3-4.4); LYMPH % 28.2 % (27.0-41.0); MEAN CELL VOLUME 91.8 fl (81.0-99.0); MEAN CORPUSCULAR HGB 30.4 pg (27.0-31.0); MEAN CORPUSCULAR HGB CONC 33.2 g/dl (33.0-37.0); MEAN PLATELET VOLUME 8.9 fl (9.6-12.3); MONO # 0.6 10*3/uL (0.1-1.0); MONO % 7.2 % (3.0-9.0); NEUT # 5.2 10*3/uL (2.3-7.9); NEUT % 59.6 % (47.0-73.0); PLATELET COUNT AUTOMATED 229 10*3/uL (130-400); RED BLOOD COUNT 4.14 10*6/uL (4.10-5.10); RED CELL DISTRI WIDTH 12.4 % (0-14.5); WHITE BLOOD COUNT 8.8 10*3/uL (4.8-10.8)
[2024-06-17 23:35] LABS: ALKALINE PHOSPHATASE 86 U/L (46-116); BUN 10 mg/dl (9-23); CHLORIDE 107 mmol/L (98-107); POTASSIUM 3.8 mmol/L (3.4-5.1); SGPT/ALT 19 U/L (5-49); TOTAL PROTEIN 6.5 gm/dL (6.0-8.0)
== END 2024-06-18 02:45 | disposition home or self-care (01) ==
LOC: ED 22:31
PROVIDERS: Emergency Medicine
DX: R07.89 Other chest pain (principal); R05.9 Cough, unspecified; Z88.0 Allergy status to penicillin; Z79.899 Other long term (current) drug therapy

== ENCOUNTER 2024-06-28 08:00 | Emergency (ER) | payer OTHER ==
[~2024-06-28] VITALS: Ht 167.6 cm; Wt 98.0 kg
[2024-06-28] MEDS ORDERED: diphenhydrAMINE hydrochloride 50 MG/ML VIAL IV ONE (08:30)
[2024-06-28] MEDS ORDERED: methylPREDNISolone sod succ 125 MG VIAL IV ONE (08:30)
[2024-06-28] MEDS ORDERED: FAMOTIDINE 50 ML IV ONE (08:30)
[2024-06-28 08:52] LABS: BASO % 0.1 % (0.0-1.0); EOS # 0.1 10*3/uL (0.0-0.4); EOS % 1.9 % (1.0-4.0); LYMPH # 1.6 10*3/uL (1.3-4.4); LYMPH % 23.9 % (27.0-41.0); MEAN CELL VOLUME 91.7 fl (81.0-99.0); MEAN CORPUSCULAR HGB 30.3 pg (27.0-31.0); MEAN CORPUSCULAR HGB CONC 33.1 g/dl (33.0-37.0); MONO # 0.3 10*3/uL (0.1-1.0); MONO % 4.7 % (3.0-9.0); NEUT # 4.7 10*3/uL (2.3-7.9); NEUT % 69.1 % (47.0-73.0); PLATELET COUNT AUTOMATED 249 10*3/uL (130-400); RED BLOOD COUNT 4.58 10*6/uL (4.10-5.10); RED CELL DISTRI WIDTH 12.3 % (0-14.5); WHITE BLOOD COUNT 6.8 10*3/uL (4.8-10.8)
[2024-06-28 09:13] LABS: ALKALINE PHOSPHATASE 84 U/L (46-116); BUN 7 mg/dl (9-23); CHLORIDE 108 mmol/L (98-107); POTASSIUM 3.6 mmol/L (3.4-5.1); SGPT/ALT 17 U/L (5-49); TOTAL PROTEIN 6.8 gm/dL (6.0-8.0)
[2024-06-28] MEDS ORDERED: PREDNISONE50 MG PO (10:20)
[2024-06-28] MEDS ORDERED: BENADRYL ALLERG25 M5 PO (10:20)
== END 2024-06-28 10:23 | disposition home or self-care (01) ==
LOC: ED 08:00
PROVIDERS: Internal Medicine
DX: L25.9 Unspecified contact dermatitis, unspecified cause (principal); F32.A Depression, unspecified; Z88.0 Allergy status to penicillin; Z90.49 Acquired absence of other specified parts of digestive tract; Z98.51 Tubal ligation status

== ENCOUNTER 2024-10-09 20:51 | Emergency (ER) | payer OTHER ==
[~2024-10-09] VITALS: Ht 167.6 cm; Wt 92.5 kg
[~2024-10-09 20:51] MED LIST changes: +BENADRYL ALLERG25 M5 PO; +PREDNISONE50 MG PO
[2024-10-09] MEDS ORDERED: hydrOXYzine pamoate 25 MG CAP PO ONE (21:20)
[2024-10-09 22:33] LABS: BASO % 0.4 % (0.0-1.0); EOS # 0.2 10*3/uL (0.0-0.4); EOS % 1.9 % (1.0-4.0); HEMATOCRIT 39.5 % (37.0-47.0); MEAN CELL VOLUME 93.4 fl (81.0-99.0); MEAN CORPUSCULAR HGB CONC 32.2 g/dl (33.0-37.0); MEAN PLATELET VOLUME 8.9 fl (9.6-12.3); MONO # 0.6 10*3/uL (0.1-1.0); MONO % 6.1 % (3.0-9.0); NEUT # 6.6 10*3/uL (2.3-7.9); NEUT % 67.3 % (47.0-73.0); PLATELET COUNT AUTOMATED 278 10*3/uL (130-400); RED BLOOD COUNT 4.23 10*6/uL (4.10-5.10); RED CELL DISTRI WIDTH 12.3 % (0-14.5); WHITE BLOOD COUNT 9.8 10*3/uL (4.8-10.8)
[2024-10-09 22:53] LABS: BUN 11 mg/dl (9-23); CHLORIDE 107 mmol/L (98-107); POTASSIUM 4.1 mmol/L (3.4-5.1)
== END 2024-10-09 23:07 | disposition home or self-care (01) ==
LOC: ED 20:51
PROVIDERS: Physician Assistant Medical
DX: M54.6 Pain in thoracic spine (principal); F41.9 Anxiety disorder, unspecified; M79.7 Fibromyalgia; F32.A Depression, unspecified; Z88.0 Allergy status to penicillin; Z90.49 Acquired absence of other specified parts of digestive tract; Z98.51 Tubal ligation status

== ENCOUNTER → 2024-12-16 | Outpatient (CLI) | payer OTHER ==
[2024-12-16 15:12] LABS: BASO % 0.4 % (0.0-1.0); EOS # 0.2 10*3/uL (0.0-0.4); MEAN CELL VOLUME 90.7 fl (81.0-99.0); MEAN CORPUSCULAR HGB 29.8 pg (27.0-31.0); MEAN CORPUSCULAR HGB CONC 32.9 g/dl (33.0-37.0); MEAN PLATELET VOLUME 8.5 fl (9.6-12.3); MONO # 0.5 10*3/uL (0.1-1.0); MONO % 5.3 % (3.0-9.0); NEUT # 6.5 10*3/uL (2.3-7.9); NEUT % 66.4 % (47.0-73.0); PLATELET COUNT AUTOMATED 262 10*3/uL (130-400); RED BLOOD COUNT 4.63 10*6/uL (4.10-5.10); RED CELL DISTRI WIDTH 12.7 % (0-14.5); WHITE BLOOD COUNT 9.7 10*3/uL (4.8-10.8)
[2024-12-16 15:38] LABS: ALKALINE PHOSPHATASE 71 U/L (46-116); BUN 11 mg/dl (9-23); CHLORIDE 103 mmol/L (98-107); POTASSIUM 3.6 mmol/L (3.4-5.1); SGPT/ALT 17 U/L (5-49); TOTAL PROTEIN 7.3 gm/dL (6.0-8.0)
== END | disposition home or self-care (01) ==
LOC: MAMMO 13:30 → LAB 13:40
PROVIDERS: ATTEND Nurse Practitioner Family
DX: N63.24 Unspecified lump in the left breast, lower inner quadrant (principal); M32.9 Systemic lupus erythematosus, unspecified

== ENCOUNTER 2025-04-27 14:42 | Emergency (ER) | payer OTHER ==
[~2025-04-27] VITALS: Ht 167.6 cm; Wt 96.6 kg
[2025-04-27] MEDS ORDERED: Ondansetron Hydrochloride 4 MG/2 ML VIAL IV ONE (15:55)
[2025-04-27] MEDS ORDERED: SODIUM CHLORIDE 0.9% 1,000 ML IV ONE (15:55)
[2025-04-27 16:07] LABS: BASO % 0.4 % (0.0-1.0); EOS # 0.1 10*3/uL (0.0-0.4); EOS % 0.8 % (1.0-4.0); MEAN CELL VOLUME 90.7 fl (81.0-99.0); MEAN CORPUSCULAR HGB 30.7 pg (27.0-31.0); MEAN CORPUSCULAR HGB CONC 33.8 g/dl (33.0-37.0); MEAN PLATELET VOLUME 8.6 fl (9.6-12.3); MONO # 0.6 10*3/uL (0.1-1.0); MONO % 7.6 % (3.0-9.0); NEUT # 5.5 10*3/uL (2.3-7.9); NEUT % 70.7 % (47.0-73.0); PLATELET COUNT AUTOMATED 346 10*3/uL (130-400); RED CELL DISTRI WIDTH 12.2 % (0-14.5); WHITE BLOOD COUNT 7.8 10*3/uL (4.8-10.8)
[2025-04-27 16:38] LABS: BUN 11 mg/dl (9-23); CHLORIDE 104 mmol/L (98-107); POTASSIUM 3.6 mmol/L (3.4-5.1)
[2025-04-27] MEDS ORDERED: SEPTDS PO (16:51)
[2025-04-27] MEDS ORDERED: Ondansetron4 MG PO (16:52)
[2025-04-27] MEDS ORDERED: Sulfamethoxazole/Trimethopri 1 TAB TAB PO ONE (16:55)
== END 2025-04-27 17:10 | disposition home or self-care (01) ==
LOC: ED 14:42
PROVIDERS: Nurse Practitioner Family
DX: N76.4 Abscess of vulva (principal); F41.9 Anxiety disorder, unspecified; F32.A Depression, unspecified; R11.0 Nausea; Z88.0 Allergy status to penicillin

== ENCOUNTER → 2025-05-27 | Outpatient (CLI) | payer OTHER ==
[~2025-05-27] MED LIST changes: +Ondansetron4 MG PO
== END | disposition home or self-care (01) ==
LOC: US 14:02
PROVIDERS: ATTEND Nurse Practitioner Primary Care
DX: I65.23 Occlusion and stenosis of bilateral carotid arteries (principal); R68.84 Jaw pain; R94.31 Abnormal electrocardiogram [ECG] [EKG]; R20.0 Anesthesia of skin

== ENCOUNTER → 2025-05-28 | Outpatient (CLI) | payer OTHER ==
[2025-05-28 09:19] LABS: LDL CHOLESTEROL 100 mg/dL (9-159)
== END | disposition home or self-care (01) ==
LOC: LAB 08:14
PROVIDERS: ATTEND Nurse Practitioner Primary Care
DX: R94.31 Abnormal electrocardiogram [ECG] [EKG] (principal); R20.0 Anesthesia of skin; Z79.899 Other long term (current) drug therapy

== ENCOUNTER 2025-07-14 22:28 | Emergency (ER) | payer OTHER ==
[~2025-07-14] VITALS: Ht 167.6 cm; Wt 97.5 kg
[2025-07-14] MEDS ORDERED: LASIX20 MG PO (22:41)
[2025-07-14] MEDS ORDERED: WELLBUTRIN SR150 MG PO (22:41)
[2025-07-14] MEDS ORDERED: Albuterol Sulf/Ipratropium 3 ML VIAL NEB ONE (23:35)
[2025-07-15] MEDS ORDERED: AVPAK AZITHROM250 M1 PO (00:20)
[2025-07-15] MEDS ORDERED: AZITHROMYCIN 250 MG TAB PO ONE (00:20)
[2025-07-15] MEDS ORDERED: PREDNISONE20 M1 PO (00:20)
== END 2025-07-15 00:35 | disposition home or self-care (01) ==
LOC: ED 22:28
DX: J40 Bronchitis, not specified as acute or chronic (principal); F41.9 Anxiety disorder, unspecified; Z79.899 Other long term (current) drug therapy; Z88.0 Allergy status to penicillin

== ENCOUNTER 2025-09-12 18:57 | Emergency (ER) | payer SELFPAY ==
[~2025-09-12] VITALS: Ht 167.6 cm; Wt 97.5 kg
[~2025-09-12 18:57] MED LIST changes: +AVPAK AZITHROM250 M1 PO; +LASIX20 MG PO; +WELLBUTRIN SR150 MG PO
[2025-09-12] MEDS ORDERED: Albuterol Sulf/Ipratropium 3 ML VIAL NEB ONE (20:05)
[2025-09-12 20:41] LABS: BASO # 0.1 10*3/uL (0.0-0.1); BASO % 0.7 % (0.0-1.0); EOS # 0.5 10*3/uL (0.0-0.4); EOS % 4.1 % (1.0-4.0); MEAN CELL VOLUME 89.7 fl (81.0-99.0); MEAN CORPUSCULAR HGB 29.1 pg (27.0-31.0); MEAN PLATELET VOLUME 9.2 fl (9.6-12.3); MONO # 0.6 10*3/uL (0.1-1.0); MONO % 5.5 % (3.0-9.0); NEUT # 7.7 10*3/uL (2.3-7.9); NEUT % 65.6 % (47.0-73.0); NUCLEATED RED BLOOD CELL 0.0 % (0.0-0.0); NUCLEATED RED BLOOD CELL 0.0 10*3/uL (0.0-0.0); PLATELET COUNT AUTOMATED 316 10*3/uL (130-400); RED CELL DISTRI WIDTH 12.4 % (0-14.5)
[2025-09-12 21:03] LABS: BUN 9 mg/dl (9-23)
[2025-09-13] MEDS ORDERED: ZITHROMAX250 MG PO (03:21)
[2025-09-13] MEDS ORDERED: AZITHROMYCIN 250 MG TAB PO ONE ×2 (03:25→03:56)
== END 2025-09-13 03:38 | disposition home or self-care (01) ==
LOC: ED 18:57
PROVIDERS: Emergency Medicine
DX: J40 Bronchitis, not specified as acute or chronic (principal); J98.01 Acute bronchospasm; F41.9 Anxiety disorder, unspecified; Z87.891 Personal history of nicotine dependence; Z88.0 Allergy status to penicillin; Z79.899 Other long term (current) drug therapy; Z20.822 Contact with and (suspected) exposure to COVID-19